=== PATIENT | female | born 1990 ===

== ENCOUNTER 2024-11-29 11:35 | Outpatient (AMB) | payer MEDICAID, SELFPAY ==
[2024-11-29 11:45] VITALS: BP 132/84; PULSE 62; RESP 18; TEMP 37; O2SAT 97; BMI 30.9
--- NOTE | 2024-11-29 11:45 | ACNOTE_ITS ---
Vital Signs 11/29/24 11:45 Height 1.6 m Height Method Stated Weight 79.095 kg Weight Measurement Method Standing Scale BMI 30.9 BP 132/84 H Blood Pressure Source Automatic Cuff Blood Pressure Location Right Upper Arm Position Sitting Respiration 18 Pulse 62 Pulse Source Monitor Temp 98.6 F Temp Source Temporal Artery Scan Pulse Oximetry (%) 97 Oxygen Delivery Method Room Air Allergies/Meds Allergies & Medications Allergies No Known Allergies Allergy (Verified 11/29/24 11:46) Medication Reconciliation No Known Home Medications 11/29/24 [History Confirmed 11/29/24] MA Intake Visit Data Collection New Patient or Established: New Patient not seen in past 3 years at [facility] (considered New) Seen by Clinical Staff ONLY (RN/MA): No Pain Present Currently: No Pain scale:: 0 Pain Scale Used: Maloney-Mehta/Numerical Threshing Machine Operator Required: No PCP or OBGYN visit in last 3 months: No Hx Now: No Smoking Status Smoking Status: Never smoker Immunization / Flu Flu Vaccine in the Last 12 Months: No Flu Vaccine Exclusion Criteria: No Exclusion Criteria Past Medical History Social History SMOKING STATUS: Smoking status: Never smoker Patient Portal Questionaires Social History Tobacco History Smoking Status: Never smoker Review of Systems Report any current symptoms Only answer those that you have currently: Past Medical History Past Medical History Have you ever been diagnosed with any of the following: History of Present Illness HPI Narrative HPI: A 34-year-old female patient with no past medical history presented today to the office for physical examination for preemployment. Patient works as a registered nurse and she denied any medical issues at this time. Patient currently is not taking any meds. Does not have any seizure disorder, heart attacks, musculoskeletal symptoms, claustrophobia, shortness of breath, and denied any history of allergies or anaphylactic shock. Patient denied taking any medications that might interfere with her usual physical activities. She reported that her vaccines are up-to-date. She has her PPD test on 14 Oct 2024, and it was negative after 48 hours. Home medications: No home medications except for ibuprofen as needed for pain. PMH: No past medical history Social hx: Alcohol: Denied Tobacco: Denied Illicit drugs: Denied Allergies: No known allergies Review of Systems Review of Systems Systems Reviewed: All systems reviewed, normal except as documented Objective/Exam Narrative Physical exam: GEN: AOx3, able to speak full sentences HEENT: NC/AC, oral mucosa moist, neck supple CVS: RRR, S1-S2 present, no murmurs appreciated RESP: CTAB GI: soft,non distended, non tender, NBS MSK: able to move all 4 limbs, no lower extremity edema SKIN: warm and dry HAND EXPANSION ENVELOPE MAKER: CN II-XII and Sensation grossly intact. Assessment & Plan Diagnosis / Problem List (1) Pre-employment examination: Status: Acute Assessment & Plan: Based on the documentation provided by the patient her last PPD test was done at [facility] on 14 Oct 2024 was negative after 48 hours for any duration. Patient has never tested positive for PPD test in the past. 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 - A copy of the PPD test result was added to the patient's chart. Additional Assessment Attending note: I, Teo Padilla MD, attest that I was physically present for the cook portions of the service and evaluated the patient with the resident and I reviewed and discussed the case with the resident and agree with the resident's findings and plans of care as documented above. Teo Padilla MD Physician Billing Established PCPM Established Patient PCPM: E/M 18-39 yrs-CPT 20713 Office Procedures [facility] Level of Care Nursing/Assessment Patient Status: Established Patient Nursing Assessment/Reassessment: Medication Reconciliation, Update PMH in EMR and Vital Signs Coordination of Care: Complex Care and Chronic Disease 1-5, Consent,records obtained, informed consent, Education Simp Pt/Fam and Staff clarify orders Established Patient Charge Established Patient Point Assignment: 85 Established Patient Point Charge: EP Level 3 (80-115)
== END 2024-11-29 12:00 | disposition home or self-care (01) ==
PROVIDERS: Supervising Provider Internal Medicine; Visit Provider Student in an Organized Health Care Education/Training Program
DX: Z02.1 Encounter for pre-employment examination (principal)
CPT/HCPCS: 99213; G0463